=== PATIENT | female | born 1975 | race Caucasian/White ===

== ENCOUNTER 2017-10-23 23:25 | Emergency (ER) | payer BC ==
[2017-10-23 23:48] VITALS: BP 128/69
[2017-10-23] MEDS ORDERED: Hyoscyamine 0.125 MG Tab.SL SL ONE (23:54)
[2017-10-23] MEDS ORDERED: Dicyclomine 10 MG Cap PO ONE (23:55)
--- NOTE | 2017-10-23 23:59 | EDM.PDOC ---
ED HPI GENERAL MEDICAL PROBLEM - General Chief Complaint: Abdominal Pain Stated Complaint: sob abdominal pain Time Seen by Provider: 10/23/17 23:54 Source of Information: Reports: Patient, Family (spouse) History Limitations: Reports: No Limitations - History of Present Illness INITIAL COMMENTS - FREE TEXT/NARRATIVE: 41-year-old female presents the ED with epigastric pain radiating up into her neck throat. It hurts to take a deep breath I is movement of the diaphragm aggravates the pain in the epigastrium. She has a chronic history of gastroesophageal reflux. Particular she bends over she will have free reflux up into her mouth and throat. She's been told she has a hiatal hernia by barium swallow in the past. She's had investigations of her gallbladder with negative findings. Eats this often happens after drinking soda pop. She did have soda pop tonight after supper. She feels a constant pressure in her epigastrium. She has vomited once which did give her some relief. She states almost always when this pain comes on which is at least once a month she'll vomit and get some relief. Burping and belching seems to help a little bit as well. Pain radiates through to her mid back. It radiates up into her throat and neck at this time. The pain is lasting longer than normal tonight and is a more intense. Onset: Today Onset Date: 10/23/17 Onset Time: 21:00 Duration: Hour(s): Location: Reports: Chest (Retrosternal chest.), Abdomen (Epigastrium rating up into the chest and throat.), Radiates to (Radiates from the epigastrium through to her mid back.) Quality: Reports: Ache, Pressure, Other Severity: Moderate (Intermittent colicky component to the pain) Improves with: Reports: None (, and out of 10), Other (Mild improvement after vomiting bilious material tonight) Worsens with: Reports: None Context: Denies: Activity, Exercise, Lifting, Sick Contact, Trauma Associated Symptoms: Reports: Chest Pain (Associated with epigastric pain), Nausea/Vomiting (Once tonight. Bilious material). 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) (None.) Epigastric Pain Score (Numeric/FACES): 7 - Related Data Allergies Allergy/AdvReac Type Severity Reaction Status Date / Time No Known Allergies Allergy Verified 10/23/17 23:40 Home Meds: Home Meds Omeprazole 40 mg PO BID 02/08/14 [History] Furosemide 1 tab PO DAILY 04/15/16 [History] Polyethylene Glycol 3350 [MiraLAX] 1 tab PO DAILY 04/15/16 [History] Docusate Sodium [Colace] 100 mg PO BID cap 04/17/16 [Rx] Hyoscyamine Sulfate [Levsin-Sl] 0.125 mg SL ASDIRECTED #10 tab.subl 10/24/17 [Rx ] Past Medical History HEENT History: Reports: Impaired Vision Cardiovascular History: Reports: Other (See Below) Other Cardiovascular History: peripheral edema Respiratory History: Reports: Pneumonia, Recurrent, Sleep Apnea Other Respiratory History: no machine for sleep apnea Gastrointestinal History: Reports: GERD Other Gastrointestinal History: hepatitis A Genitourinary History: Reports: None 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 Hematologic History: Reports hepatitis A age 13 - Infectious Disease History Infectious Disease History: Reports: Hepatitis A - Past Surgical History Female Surgical History: Reports: D&C Social & Family History - Family History Family Medical History: Noncontributory Cardiac: Reports: Bypass, Other (See Below) Other Cardiac Family History: grandfather triple bypass Oncologic: Reports: Other (See Below) Other Oncologic Family History: dad had jaw cancer related to smoking - Tobacco Use Smoking Status *Q: Never Smoker - Caffeine Use Caffeine Use: Reports: Soda - Living Situation & Occupation Living situation: Reports: Occupation: Employed ED ROS GENERAL - Review of Systems Review Of Systems: See Below Constitutional: Reports: Decreased Appetite. Denies: Fever, Chills, Malaise, Weakness, Fatigue, Weight Loss HEENT: Reports: Glasses Respiratory: Reports: Shortness of Breath Cardiovascular: Reports: Chest Pain (Can take a full deep breath as it aggravates the abdominal epigastric pain. Pain starts in the epigastrium radiates up into the retrosternal chest to her throat.) Endocrine: Reports: No Symptoms GI/Abdominal: Reports: Abdominal Pain, Constipation (See history of present illness intermittent problems with constipation), Other (Her GERD with reflux particularly when she bends over with brash water and reflux of gastric contents into her mouth and throat. Strongly suggests a hiatal hernia.) : Reports: No Symptoms Musculoskeletal: Reports: Back Pain Skin: Reports: No Symptoms (mid back pain associated) Neurological: Reports: No Symptoms Psychiatric: Reports: No Symptoms Hematologic/Lymphatic: Reports: No Symptoms ED EXAM, GI/ABD - Physical Exam Exam: See Below Exam Limited By: No Limitations General Appearance: Alert, WD/WN, Moderate Distress (In obvious discomfort.) Eyes: Bilateral: Normal Appearance (No jaundice) Throat/Mouth: Normal Inspection, Normal Lips, Normal Oropharynx Head: Atraumatic, Normocephalic Neck: Normal Inspection, Non-Tender, Full Range of Motion. No: Lymphadenopathy (R) Respiratory/Chest: No Respiratory Distress, Lungs Clear, Normal Breath Sounds, No Accessory Muscle Use Cardiovascular: Normal Peripheral Pulses, Regular Rate, Rhythm, No Edema, No Gallop, No Murmur GI/Abdominal Exam: Normal Bowel Sounds, Soft, No Organomegaly (Decreased bowel sounds.), Tender (Uterus is in the epigastrium and radiates up into the chest on deep palpation of the epigastrium.), Abnormal Bowel Sounds. No: Guarding, Rigid, Rebound Back Exam: Normal Inspection, Full Range of Motion. No: CVA Tenderness (L), CVA Tenderness (R) Extremities: Normal Inspection, Normal Range of Motion, Non-Tender, No Pedal Edema Neurological: CN II-XII Intact, Normal Cognition Psychiatric: Normal Affect, Normal Mood Skin Exam: Warm, Dry, Intact, Normal Color, No Rash EKG INTERPRETATION EKG Date: 10/24/17 Time: 00:15 Rhythm: NSR Rate (Beats/Min): 90 [place]: Normal P-Wave: Present QRS: Other (Q waves noted in leads 3 and aVF. There less than 25% of the QRS complex and are presumed to be insignificant.) ST-T: Normal QT: Normal EKG Interpretation Comments: Normal ECG Course - Vital Signs Last Recorded V/S: Last Vital Signs Temp 36.2 C 10/23/17 23:36 Pulse 92 10/23/17 23:36 Resp 16 10/23/17 23:36 BP 128/69 10/23/17 23:36 Pulse Ox 100 10/23/17 23:36 - Orders/Labs/Meds Orders: Active Orders 24 hr Category Date Time Status EKG Documentation Completion [RC] STAT Care 10/23/17 23:56 Active AMYLASE [CHEM] Stat Lab 10/24/17 00:30 Received CBC WITH MANUAL DIFF [HEME] Stat Lab 10/24/17 00:30 Results COMPREHENSIVE METABOLIC PN,CMP [CHEM] Stat Lab 10/24/17 00:30 Received TROPONIN I [CHEM] Stat Lab 10/24/17 00:30 Received Sodium Chloride 0.9% [Normal Saline] 1,000 ml Med 10/24/17 00:15 Active IV ASDIRECTED Medication Orders Sodium Chloride (Normal Saline) 1,000 mls @ 125 mls/hr IV ASDIRECTED BC Last Admin: 10/24/17 00:30 Dose: 125 mls/hr Labs: Laboratory Tests 10/24/17 Range/Units 00:30 WBC 10.47 H (3.98-10.04) K/mm3 RBC 4.79 (3.98-5.22) M/mm3 Hgb 13.3 (11.2-15.7) gm/L Hct 40.7 (34.1-44.9) % MCV 85.0 (79.4-94.8) fl MCH 27.8 (25.6-32.2) pg MCHC 32.7 (32.2-35.5) g/dl RDW Std Deviation 43.7 (36.4-46.3) fL Plt Count 352 (182-369) K/mm3 MPV 10.1 (9.4-12.3) fl Meds: Medications Generic Name Dose Route Start Last Admin Trade Name Freq PRN Reason Stop Dose Admin Sodium Chloride 1,000 mls @ 125 mls/hr 10/24/17 00:15 10/24/17 00:30 Normal Saline IV 125 mls/hr ASDIRECTED BC Administration Discontinued Medications Generic Name Dose Route Start Last Admin Trade Name Freq PRN Reason Stop Dose Admin Dicyclomine HCl 20 mg 10/23/17 23:55 10/24/17 00:00 Bentyl PO 10/23/17 23:56 20 mg ONETIME ONE Administration Hydromorphone HCl 0.5 mg 10/24/17 00:10 10/24/17 00:30 Dilaudid IVPUSH 10/24/17 00:11 0.5 mg ONETIME ONE Administration Hyoscyamine 0.125 mg 10/23/17 23:54 10/24/17 00:00 Hyomax-Sl SL 10/23/17 23:55 0.125 mg ONETIME ONE Administration Metoclopramide HCl 10 mg 10/24/17 00:10 10/24/17 00:30 Reglan IVPUSH 10/24/17 00:11 10 mg ONETIME ONE Administration - Radiology Interpretation Free Text/Narrative:: 41-year-old female presents the ED with a recurrence of similar problem. She has severe epigastric pain rating to to her mid back. It is aggravated by deep breathing or movement of the diaphragm. Patient has a history of severe gastroesophageal reflux disease particularly when bending over she will get a mouth full of brash water. She has been confirmed to have a hiatal hernia. She' s never been offered or suggested to have fundoplication procedure. Tonight she ate rather late and then had a soda pop afterwards. She is appreciated the similar type pain after drinking soda pop in the past. She has vomited once. Bilious material. Gave her partial relief of the pain. Examination reveals quiet bowel sounds. Tenderness in the epigastrium rating up into the retrosternal chest. Clinically she has a hiatal hernia that is stretching the gastroesophageal opening in the diaphragm. Try Levsin 0.125 mg sublingually 2 doses to see if it arises with any relief as she could use this at home. Also give her Bentyl 20 mg orally. Failing this she required intravenous analgesia. ECG to be done - Re-Assessments/Exams Free Text/Narrative Re-Assessment/Exam: 10/24/17 00:10 has not appreciated any relief of the pain with the Levsin sublingually. Pain seemed to worsen after swallowing the Bentyl tablets. Will therefore proceed with intravenous medications. IV will be normal saline at 125 mils per hour. She'll be given Dilaudid 0.5 mg IV with Reglan 10 mg IV initially. 10/24/17 01:02 is pretty well pain free. She can feel her stomach gurgling quite a bit at this time. Please with the amount of reflux and waking up in the night with brash water in her mouth and throat she is a candidate for fundoplication. Advised her to follow up with Ella Segovia then direct her to a appropriate surgeon who performs fundoplication. No Dr. Steele does a lot of fundoplication lower at [facility] in [place] unsure of who is doing most of the fundoplication set [facility]. She will be discharged with 10 tablets of Levsin 0.125 mg sublingual. She is to take 1 immediately upon symptoms and then repeat in 5-10 minutes if needed. If 2 tablets to work then further tablets are unlikely to be helpful. However Levsin may abort the initial attack. Departure - Departure Time of Disposition: 01:03 Disposition: Home, Self-Care 01 Condition: Fair Clinical Impression: Hiatal hernia with GERD Abdominal pain Qualifiers: Abdominal location: epigastric Qualified Code(s): R10.13 - Epigastric pain - Discharge Information Prescriptions: Hyoscyamine Sulfate [Levsin-Sl] 0.125 mg SL ASDIRECTED #10 tab.subl Instructions: Laparoscopic Byron Fundoplication Referrals: Sharla Rosen PA-C [Primary Care Provider] - Forms: ED Department Discharge Additional Instructions: Evaluation the emergency room tonight in regards to development of severe epigastric pain rating up into her throat and retrosternal chest. Us is happened to him many times in the past but was much worse tonight. It occurred after eating and then drinking soda pop. By history you have significant gastroesophageal reflux problems often awaking at night with brash water in your mouth and throat. This strongly suggests that you have a hiatal hernia with an impaired lower esophageal sphincter which is the muscle that usually keeps the food pipe closed at the bottom. With hiatal hernia and moves up into the chest and is open all the time which promotes free reflux of acid in stomach contents up into the food pipe and sometimes up into the throat and mouth. Tonight she seemed to have an acute worsening of hiatal hernia. You were given Levsin sublingually but it didn't seem to help much. Bentyl tablet by mouth male for started to help after 45 minutes. He did receive a dose of Dilaudid 0.5 mg IV to relax the muscles around the food pipe and allow the stomach to return down into the abdominal cavity. This seemed to help a good deal. Strongly recommend follow up with a provider such as Ella Muñoz who works on the third floor of the [facility] the [facility]. She will direct you to an appropriate surgeon who could perform a fundoplication and fix this problem . I did supply you with some Levsin tablets that you can take one some lingering arrived your tongue at the onset of symptoms and repeat in 10 minutes if needed. If pain does not go away completely taking more tablets unlikely to help. - My Orders Last 24 Hours: My Active Orders 10/23/17 23:56 EKG Documentation Completion [RC] STAT 10/24/17 00:15 Sodium Chloride 0.9% [Normal Saline] 1,000 ml IV ASDIRECTED 10/24/17 00:30 AMYLASE [CHEM] Stat CBC WITH MANUAL DIFF [HEME] Stat COMPREHENSIVE METABOLIC PN,CMP [CHEM] Stat TROPONIN I [CHEM] Stat - Assessment/Plan Last 24 Hours: My Active Orders 10/23/17 23:56 EKG Documentation Completion [RC] STAT 10/24/17 00:15 Sodium Chloride 0.9% [Normal Saline] 1,000 ml IV ASDIRECTED 10/24/17 00:30 AMYLASE [CHEM] Stat CBC WITH MANUAL DIFF [HEME] Stat COMPREHENSIVE METABOLIC PN,CMP [CHEM] Stat TROPONIN I [CHEM] Stat
[2017-10-24] MEDS ORDERED: Metoclopramide 10 MG/2 ML SDV IVPUSH ONE (00:10)
[2017-10-24] MEDS ORDERED: HYDROmorphone 0.5 MG/0.5 ML SYRINGE IVPUSH ONE (00:10)
[2017-10-24] MEDS ORDERED: Sodium Chloride 0.9% 1,000 ML IV SCH (00:15)
== END 2017-10-24 01:17 | disposition home or self-care (01) ==
LOC: JD.ED 23:25
DX: K44.9 Diaphragmatic hernia without obstruction or gangrene (principal); K21.9 Gastro-esophageal reflux disease without esophagitis; Z79.899 Other long term (current) drug therapy
CPT/HCPCS: 36415; 80053; 82150; 84484; 85007; 85027; 93005; 96361; 96374; 96375; 99284; A9270; J1170; J2765; J7040

== ENCOUNTER 2024-12-21 07:59 | Day surgery (SDC) | payer BC ==
[~2024-12-21 07:59] MED LIST: Sodium Chloride 0.9% 10 ML Syringe FLUSH PRN; Sodium Chloride 0.9% 10 ML Syringe FLUSH SCH
[2024-12-21] MEDS ORDERED: Propofol 200 MG/20 ML SDV ONE ×2 (08:42→08:48)
[2024-12-21] MEDS ORDERED: Midazolam 1 MG/ML 2 ML SDV ONE (08:42)
[2024-12-21] MEDS ORDERED: Lidocaine 1% 4 ML ONE (08:42)
[2024-12-21] MEDS: Lactated Ringers 1,000 ML IV SCH (09:09)
[2024-12-21 12:10] VITALS: BP 99/56; PULSE 86
== END 2024-12-21 10:30 | disposition home or self-care (01) ==
LOC: JD.SDS 07:59
PROVIDERS: ATTEND Surgery
DX: Z12.11 Encounter for screening for malignant neoplasm of colon (principal); K64.4 Residual hemorrhoidal skin tags; K64.0 First degree hemorrhoids; Z79.899 Other long term (current) drug therapy; Z86.0100 Personal history of colon polyps, unspecified
CPT/HCPCS: 45378; J2003; J2250; J2704; J7120; 00812